=== PATIENT | female | born 1950 | race Caucasian/White ===

== ENCOUNTER → 2018-04-29 16:38 | Outpatient (CLI) | payer MEDICARE, OTHER, SELFPAY ==
[2018-04-29 17:52] LABS: Absolute Neutrophil Count 7.9 X10^3/uL (2.0-7.7); Basophil# 0.02 X10^3/uL; Basophil% 0.2 % (0-1); Eosinophil# 0.26 X10^3/uL; Eosinophils% 2.3 % (0-5); Hematocrit 49.9 % (37-47); Hemoglobin 16.9 g/dl (12.0-15.0); Mean Corp Hgb Conc 33.9 g/gl (32-36); Mean Corpuscular Hgb 32.7 pg (27.0-32.0); Mean Corpuscular Volume 96.5 fL (81-99); Monocyte# 0.71 X10^3/uL; Monocyte% 6.4 % (0-10); Neutrophil # 7.94 X10^3/uL (2.7-7.7); Neutrophil % 71.6 % (47-70); Platelet Count 317 K/mm3 (150-450); RBC Distribution Width CV 16.1 % (11.6-14.6); RBC Distribution Width SD 56.4 fl (35.1-43.9); Red Blood Count 5.17 M/mm3 (4.2-5.4); White Blood Count 11.1 K/mm3 (4.4-11.0)
[2018-04-29 17:54] LABS: POSITIVE COUNT NO; POSITIVE DIFFERENTIAL NO; POSITIVE MORPHOLOGY NO
[2018-04-29 18:05] LABS: Anion Gap 9 (5-15); BUN 40 mg/dL (7-18); BUN/Creat Ratio 28.6 RATIO (10-20); Calcium,Total 9.9 mg/dL (8.5-10.1); Chloride 103 mmol/L (98-107); EST Glomerular Filtration Rate 40 mL/min (>60); Est Glom Filt Rate - Afr Amer 48 mL/min (>60); Free T3 3.2 pg/mL (2.18-3.98); Glucose 105 mg/dL (74-106); Potassium 4.2 mmol/L (3.5-5.1); Sodium Level 140 mmol/L (136-145); T4 Free Direct 1.02 ng/dL (0.76-1.46); Thyroid Stim Hormone (TSH) 0.29 uIU/mL (0.358-3.74)
== END ==
PROVIDERS: Family Provider Internal Medicine; PCP Internal Medicine; Visit Provider Internal Medicine
DX: E87.5 Hyperkalemia (principal); N18.2 Chronic kidney disease, stage 2 (mild); R94.6 Abnormal results of thyroid function studies; D72.829 Elevated white blood cell count, unspecified
CPT/HCPCS: 36415; 80048; 84439; 84443; 84481; 85025

== ENCOUNTER → 2018-05-20 07:45 | Outpatient (CLI) | payer MEDICARE, OTHER, SELFPAY ==
--- NOTE | 2018-05-20 07:48 | CDU_ITS ---
Reason For Study: CAROTID STENOSIS Rt. Velocities/BP Lt. Velocities/BP Prox CCA 60/11 cm/sec. Prox CCA 106/19 cm/sec. Mid CCA 85/19 cm/sec. Mid CCA 104/27 cm/sec. Dist CCA 83/16 cm/sec. Dist CCA 61/17 cm/sec. Prox ICA 599/180 cm/sec. Prox ICA 102/22 cm/sec. Mid ICA 339/49 cm/sec. Mid ICA 146/39 cm/sec. Dist ICA 103/29 cm/sec. Dist ICA 149/46 cm/sec. Rt. ICA/CCA = 7.05. Lt. ICA/CCA = 1.4. Prox ECA 485/34 cm/sec. Prox ECA 314/55 cm/sec. Rt. Vert. 105/25 cm/sec. Right Extracranial There is homogeneous, smooth atherosclerotic plaque noted in the right common carotid artery. There is heterogeneous, irregular atherosclerotic plaque noted in the right internal carotid artery. There is heterogeneous, irregular atherosclerotic plaque noted in the right external carotid artery. Antegrade flow is noted in the right vertebral artery. There is heterogeneous, irregular atherosclerotic plaque noted in the left bulb. Left Extracranial There is homogeneous, smooth atherosclerotic plaque noted in the left common carotid artery. There is heterogeneous, smooth atherosclerotic plaque noted in the left internal carotid artery. There is heterogeneous, irregular atherosclerotic plaque noted in the left external carotid artery. Flow could not be demonstrated in the left vertebral artery. There is heterogeneous, irregular atherosclerotic plaque noted in the left bulb. Procedure Carotid Duplex 10541. The study was technically difficult. Preliminary results called to Dr Rocha's office. Exam performed in department. Interpretation Summary Severe (>70%) stenosis right extracranial internal carotid. Moderate (50-69%) stenosis left extracranial internal carotid. Flow within the right verterbral artery is antegrade. Left vertebral appears occluded. Flow could not be demonstrated in the left vertebral artery. Ordering Physician: Shyann Rocha Referring Physician: Shyann Rocha Performed By: Keren Arnold, MARIUM, RVT
--- NOTE | 2018-05-20 08:36 | US_ITS ---
STUDY: THYROID ULTRASOUND REASON FOR EXAM: Female, 67 years old. Thyroid nodule. TECHNIQUE: Ultrasound evaluation of the thyroid was performed with real-time and static marshall-scale imaging. COMPARISON: CT neck August 24, 2015. FINDINGS: RIGHT LOBE: The right lobe of the thyroid gland measures 5.4 x 2.1 x 1.9 cm. There is a heterogeneous echotexture. Solid upper pole nodules the largest measuring 2.7 x 2.0 x 1.8 cm. Additional nodules measuring 1.7 x 1.4 x 1.3 cm and 0.8 x 0.8 x 0.7 cm. LEFT LOBE: The left lobe of the thyroid gland measures 5.0 x 1.7 x 1.8 cm. There is a heterogeneous echotexture. Cystic nodule upper pole measuring 0.7 x 0.6 x 0.4 cm and 0.6 x 0.6 x 0.4 cm. ISTHMUS: The isthmus measures 4 mm . Solid isthmic nodule measuring 1.2 x 1.1 x 0.7 cm The regional lymph nodes are normal. US/Thyroid IMPRESSION: Heterogeneous enlarged thyroid gland containing multiple solid and cystic nodules. The largest solid nodule on the right measures 2.7 cm in greatest dimension. The largest cystic nodule on the left measures 0.7 cm in greatest dimension. Solid isthmic nodule measuring 1.2 cm. Several nodules were present on the prior CT scan. Electronically Signed: New Girard MD at 6:22 EDT , Service support ,
== END ==
PROVIDERS: Family Provider Internal Medicine; PCP Internal Medicine; Visit Provider Internal Medicine
DX: I65.23 Occlusion and stenosis of bilateral carotid arteries (principal); E04.1 Nontoxic single thyroid nodule
CPT/HCPCS: 76536; 93880

== ENCOUNTER 2019-10-06 15:51 | Emergency (ER) | payer MEDICARE, OTHER, SELFPAY ==
[2019-10-06 15:53] VITALS: BP 151/52; PULSE 89; RESP 18; TEMP 36.7; O2SAT 93; BMI 30.2
--- NOTE | 2019-10-06 17:09 | ED.DCSUM_ITS ---
- ER Visit Summary Date of Service: 10/06/19 Chief Complaint: Numbness History of Present Illness: The patient is a 69 F with what she describes it numbness. Symptoms started around 9:30 AM this morning. She says her numbness felt like [id number] in her right ulnar hand. She was resting her arm on the arm of a chair at the time. 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 Patient denies any vision changes, speech changes, facial droop, weakness, or true numbness. Denies any history of stroke. Physical Examination: Afebrile and vital signs unremarkable. Alert and oriented. No acute distress. Cranial nerves grossly intact. Good strength and sensation. No paresthesias currently. NIH stroke scale is 0. Heart regular. She is not currently in A. fib. Lungs clear. Abdomen soft. Skin appears normal. Test Results: X-rays of her cervical spine were performed. Emergency Department Course and Treatment: Patient initially complains of numbness. Upon further discussion, she is actually having paresthesias. She never had true numbness. She denies any other focal or lateralizing neurologic symptoms. It sounds like this was positional, and it has resolved. Will check x-rays of her cervical spine and reassess. X-ray showed no acute process. Unremarkable. On reevaluation, patient has no new or worsening symptoms. Her paresthesias have resolved. I believe this is a radicular type symptom. I do not believe she had a stroke or TIA. She has no visual cuts, speech changes, facial droop, true numbness, weakness, dizziness, etc. Patient will call 911 for stroke symptoms. Follow-up with her doctor for recheck. Treatment Plan: As above Disposition: Discharge Impression: Right arm paresthesias This note was generated with [employer] dictation software. It may contain incorrect words, spelling, and punctuation that were not noted in review of the chart prior to signing ED Disposition - Plan for ED Patient: Referrals: Shyann Rocha DO [Primary Care Provider] -
--- NOTE | 2019-10-06 17:10 | RAD_ITS ---
STUDY: X-RAY - CERVICAL SPINE REASON FOR EXAM: Female, 69 years old. Numbness tingling TECHNIQUE: 4 view(s) of the cervical spine were obtained. COMPARISON: None FINDINGS: Normal anterior atlantoaxial articulation. Normal odontoid process. Normal cervical lordosis. Normal vertebral bodies and endplates. Normal disc space heights. Normal visualized intervertebral neuroforamina. The soft tissue structures are unremarkable. Sternotomy wires are present. RAD/Cerv Spine 2 or 3 Views IMPRESSION: Unremarkable for age x-ray examination of the visualized cervical spine. Electronically Signed: Carrington Norton, at 17:25 EST Tel , Service support ,
--- NOTE | 2019-10-06 17:49 | ED.DEP ---
ED Disposition - Plan for ED Patient: Instructions: Paraesthesias Referrals: Shyann Rocha DO [Primary Care Provider] -
[2019-10-06 18:01] VITALS: BMI 30.2
== END 2019-10-06 18:02 | disposition home or self-care (01) ==
LOC: ED 17:25
PROVIDERS: Emergency Provider Emergency Medicine; Family Provider Internal Medicine; PCP Internal Medicine
DX: R20.0 Anesthesia of skin (principal); Z79.899 Other long term (current) drug therapy; I11.0 Hypertensive heart disease with heart failure; I50.9 Heart failure, unspecified; J44.9 Chronic obstructive pulmonary disease, unspecified; E78.00 Pure hypercholesterolemia, unspecified; I48.0 Paroxysmal atrial fibrillation; F43.10 Post-traumatic stress disorder, unspecified; Z72.0 Tobacco use
CPT/HCPCS: 72040; 99282

== ENCOUNTER 2021-02-11 14:46 | Outpatient (RCR) | payer MEDICARE, OTHER, SELFPAY | END 2021-04-19 23:59 | LOC: IMMUN 14:46 | PROVIDERS: PCP Internal Medicine; Visit Provider Family Medicine | DX: Z23 Encounter for immunization (principal) | CPT/HCPCS: 0001A; 0002A; 91300 ==